=== PATIENT | female | born 1960 | race Caucasian/White ===

== ENCOUNTER → 2016-11-27 | Outpatient (CLI) | payer OTHER ==
[~2016-11-27] MED LIST: CONJ0.453 PO; PROM25TA9 PO
== END | disposition home or self-care (01) ==
LOC: C.PAPS 12:18
PROVIDERS: ATTEND Obstetrics & Gynecology
DX: Z12.4 Encounter for screening for malignant neoplasm of cervix (principal)

== ENCOUNTER 2023-01-12 08:07 | Inpatient (IN) ==
[2023-01-12] MEDS ORDERED: SODIUM CHLORIDE 0.9% 500 ML IV ONE ×2 (08:19→10:29)
[2023-01-12] MEDS ORDERED: LABETALOL HCL IV 5 MG/ML 20ML IV STA ×2 (08:44→10:31)
--- NOTE | 2023-01-12 08:49 | XRay Report ---
XR chest 1V portable CLINICAL HISTORY: Chest pain, nonspecific COMPARISON STUDY: No previous studies for comparison. FINDINGS: There is no pneumothorax or pleural effusion. No consolidation is identified to suggest pne umonia. Linear left basilar density represents atelectasis or scarring. There is mild cardiomegaly wi thout evidence for pulmonary edema. Endovascular stent graft within the descending thoracic aorta is noted. Left paratracheal density displaces the trachea rightward. This likely reflects a portion of t he aortic arch. The graft does not appear to be within this portion of the aorta, difficult to assess by radiography. IMPRESSION: 1. Endovascular stent graft within the descending thoracic aorta. Suspected dilatation of the adjacen t portion of the aortic arch with rightward deviation of the trachea. The findings are age indetermin ate and correlation with prior imaging studies, if available, is recommended. In the absence of prio r studies, a CTA of the chest could be obtained. 2. Mild cardiomegaly. ACT 112: Negative or not required by law. Electronically signed by: Alli Rodrigues M.D. 01/12/2023 8:47 AM
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
[2023-01-12 09:09] LABS: Basophils # (auto) 0.06 K/uL (0-0.2); Basophils % (auto) 0.7 %; Eosinophils # (auto) 0.19 K/uL (0-0.50); Eosinophils % (auto) 2.1 %; Hematocrit (blood only) 35.1 % (37.0-47.0); Hemoglobin 12.3 g/dl (12.0-16.0); Immature Granulocytes # (auto) 0.04 K/uL (0.01-0.20); Immature Granulocytes % (auto) 0.4 %; Lymphocytes # (auto) 0.94 K/uL (1.2-3.4); Lymphocytes % (auto) 10.3 %; Mean Corpuscular Hemoglobin 30.6 pg (25.0-34.0); Mean Corpuscular Volume 87.3 fL (80.0-100.0); Mean Platelet Volume 8.7 fL (9.4-12.4); Monocytes # (auto) 0.53 K/uL (0.11-0.59); Monocytes % (auto) 5.8 %; Neutrophils # (auto) 7.35 K/uL (1.40-6.50); Neutrophils % (auto) 80.7 %; Platelet Count 185 K/uL (130-400); RDW Standard Deviation 41.1 fL (36.4-46.3); Red Blood Count 4.02 M/uL (4.20-5.40); White Blood Count 9.11 K/ul (4.8-10.8)
[2023-01-12 09:28] LABS: Albumin Globulin Ratio 1.1 (0.9-2); BUN Creatinine Ratio 16.6 (10-20); Bilirubin,Total 0.5 mg/dl (0.2-1.0); Calcium 9.1 mg/dl (8.6-10.3); Creatinine Clr Calc Pharmacy 29.8 ml/min; Est GFR (African American) 33.9 ml/min; Est GFR (Non-African American) 29.2 ml/min; Globulin 3.5 gm/dl (2.5-4.0); Phosphorus 4.5 mg/dl (2.5-4.9); Potassium 3.4 mmol/L (3.5-5.1); Total Protein 7.5 gm/dl (6.0-8.3)
[2023-01-12 09:33] LABS: Troponin I High Sensitivity 24.7 pg/ml (0-14)
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
[2023-01-12] MEDS ORDERED: STAT IV Infusion **Titration per Protocol STA (11:43)
[2023-01-12] MEDS: niCARdipine 25 MG in SODIUM CHLORIDE 0.9% 240 ML IV SCH ×3 (12:21→23:20)
[2023-01-12] MEDS: POTASSIUM CHLORIDE / WTR 10 MEQ/100 ML PLCT IV SCH ×2 (12:26→13:31)
--- NOTE | 2023-01-12 13:29 | Ultrasound Report ---
RENAL ULTRASOUND CLINICAL HISTORY: CKD, elevated Cr, hx dissection COMPARISON STUDY: CT of the abdomen and pelvis August 13, 2008. Outside CTA of the chest and abdomen J darryl 2022. TECHNIQUE: Sonography of the kidneys and the urinary bladder was performed. FINDINGS: Please note that the renal Doppler ultrasound will be reported separately. The right kidney is atrophic, measuring 6.4 cm. This was shown on CTA of December 27, 2022. The left kidney measures 11 c m. The right kidney is echogenic. There is no hydronephrosis. No renal mass or calculus is identified . Both ureteral jets were identified. IMPRESSION: 1. No hydronephrosis. 2. Normal sonographic appearance of the left kidney. 3. Atrophic, echogenic right kidney, as shown on CTA of December 27, 2022. This is related to the known a ortic dissection with the right renal artery arising from the false lumen. ACT 112: Negative or not required by law. Electronically signed by: Alli Rodrigues M.D. 01/12/2023 1:27 PM
--- NOTE | 2023-01-12 13:37 | Ultrasound Report ---
US duplex renal artery CLINICAL HISTORY: resistant hypertension, hx aortic dissection COMPARISON STUDY: Outside hospital abdomen and pelvis CTA 01/11/2023.. FINDINGS: There is a dissection within the visualized abdominal aorta. This corresponds the patient's known history. There is an atrophic and echogenic right kidney. Normal left kidney. No hydronephrosi s. No elevated velocities within the bilateral renal arteries to suggest hemodynamically significant stenosis. The right renal artery velocities are lower compared to the left. This is likely due to the atrophic right kidney. The bilateral renal veins are patent. IMPRESSION: 1. No evidence for renal artery stenosis. 2. Redemonstration of the patient's known dissection within the abdominal aorta. . 3. Atrophic right kidney. ACT 112: Negative or not required by law. Electronically signed by: Karthikeyan Wilkerson M.D. 01/12/2023 1:35 PM
--- NOTE | 2023-01-12 15:30 | XCELERA ---
[id number] \\[id number]
[2023-01-12] MEDS ORDERED: ACETAMINOPHEN 325 MG TAB PO PRN (15:57)
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
[2023-01-12] MEDS: LABETALOL HCL 100 MG TAB PO SCH (20:26)
[2023-01-13 05:08] LABS: Basophils # (auto) 0.07 K/uL (0-0.2); Basophils % (auto) 0.9 %; Eosinophils # (auto) 0.28 K/uL (0-0.50); Eosinophils % (auto) 3.7 %; Hematocrit (blood only) 32.8 % (37.0-47.0); Hemoglobin 11.5 g/dl (12.0-16.0); Immature Granulocytes # (auto) 0.02 K/uL (0.01-0.20); Immature Granulocytes % (auto) 0.3 %; Lymphocytes # (auto) 1.13 K/uL (1.2-3.4); Mean Corpuscular Hemoglobin 30.5 pg (25.0-34.0); Mean Corpuscular Hgb Conc 35.1 g/dL (32.0-36.0); Mean Platelet Volume 8.6 fL (9.4-12.4); Monocytes # (auto) 0.49 K/uL (0.11-0.59); Monocytes % (auto) 6.5 %; Neutrophils # (auto) 5.55 K/uL (1.40-6.50); Neutrophils % (auto) 73.6 %; Platelet Count 184 K/uL (130-400); RDW Coefficient of Variation 13.2 % (11.5-14.5); RDW Standard Deviation 41.5 fL (36.4-46.3); Red Blood Count 3.77 M/uL (4.20-5.40); White Blood Count 7.54 K/ul (4.8-10.8)
[2023-01-13 05:21] LABS: Albumin Globulin Ratio 1.2 (0.9-2); Albumin Level 3.9 gm/dl (3.4-5.0); BUN Creatinine Ratio 15.8 (10-20); Bilirubin,Total 0.5 mg/dl (0.2-1.0); Calcium 8.4 mg/dl (8.6-10.3); Creatinine Clr Calc Pharmacy 36.9 ml/min; Est GFR (African American) 43.9 ml/min; Est GFR (Non-African American) 37.9 ml/min; Globulin 3.2 gm/dl (2.5-4.0); Potassium 3.7 mmol/L (3.5-5.1); Total Protein 7.1 gm/dl (6.0-8.3)
[2023-01-13] MEDS: niCARdipine 25 MG in SODIUM CHLORIDE 0.9% 240 ML IV SCH ×2 (07:10→11:45)
--- NOTE | 2023-01-13 07:12 | Electrocardiogram Report ---
Test Reason : Blood Pressure : / mmHG Vent. Rate : 089 BPM Atrial Rate : 089 BPM P-R Int : 156 ms QRS Dur : 084 ms QT Int : 402 ms P-R-T Axes : 049 -59 178 degrees QTc Int : 489 ms Normal sinus rhythm Possible Left atrial enlargement Left axis deviation T wave abnormality, consider anterolateral ischemia Prolonged QT Abnormal ECG No previous ECGs available Confirmed by Leon Mitchell ([id number]) on 01/13/2023 7:11:55 AM Referred By: REFERRED SELF Confirmed By:Geovanni Mitchell
[2023-01-13] MEDS: LABETALOL HCL 100 MG TAB PO SCH ×2 (10:18→18:36)
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
--- NOTE | 2023-01-14 07:07 | Electrocardiogram Report ---
Test Reason : Blood Pressure : / mmHG Vent. Rate : 096 BPM Atrial Rate : 096 BPM P-R Int : 156 ms QRS Dur : 092 ms QT Int : 390 ms P-R-T Axes : 061 -65 072 degrees QTc Int : 492 ms Normal sinus rhythm Left axis deviation Moderate voltage criteria for LVH, may be normal variant Nonspecific ST abnormality Abnormal ECG No previous ECGs available Confirmed by Leon Mitchell ([id number]) on 01/14/2023 7:06:43 AM Referred By: REFERRED SELF Confirmed By:Geovanni Mitchell
[2023-01-14 07:38] LABS: Basophils # (auto) 0.04 K/uL (0-0.2); Basophils % (auto) 0.5 %; Eosinophils # (auto) 0.25 K/uL (0-0.50); Eosinophils % (auto) 3.3 %; Hemoglobin 11.7 g/dl (12.0-16.0); Immature Granulocytes # (auto) 0.02 K/uL (0.01-0.20); Immature Granulocytes % (auto) 0.3 %; Lymphocytes # (auto) 0.81 K/uL (1.2-3.4); Lymphocytes % (auto) 10.8 %; Mean Corpuscular Hemoglobin 30.5 pg (25.0-34.0); Mean Corpuscular Hgb Conc 34.4 g/dL (32.0-36.0); Mean Corpuscular Volume 88.8 fL (80.0-100.0); Mean Platelet Volume 8.5 fL (9.4-12.4); Monocytes # (auto) 0.47 K/uL (0.11-0.59); Monocytes % (auto) 6.3 %; Neutrophils # (auto) 5.88 K/uL (1.40-6.50); Neutrophils % (auto) 78.8 %; Platelet Count 177 K/uL (130-400); RDW Coefficient of Variation 13.2 % (11.5-14.5); RDW Standard Deviation 42.8 fL (36.4-46.3); Red Blood Count 3.83 M/uL (4.20-5.40); White Blood Count 7.47 K/ul (4.8-10.8)
[2023-01-14 08:59] LABS: Calcium 9.3 mg/dl (8.6-10.3)
[2023-01-14] MEDS ORDERED: LABETALOL HCL 100 MG TAB PO SCH (09:00)
[2023-01-14 09:05] LABS: BUN Creatinine Ratio 17.4 (10-20); Creatinine Clr Calc Pharmacy 36.2 ml/min; Est GFR (African American) 42.9 ml/min
[2023-01-14 09:20] LABS: Thyroid Stimulating Hormone 5.453 uIu/ml (0.300-4.500)
[2023-01-14 09:53] LABS: T4 Free Thyroxine 1.04 ng/dl (0.61-1.60)
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
== END 2023-01-14 12:38 | disposition home or self-care (01) | DRG 304 ==
LOC: ED 08:07 → SUATTDRO 13:55 → 2S 13:55 → 1E 20:39 → 2E 01-13 22:23